=== PATIENT | female | born 1980 | race Caucasian/White ===

== ENCOUNTER → 2017-11-10 | Outpatient (CLI) | payer OTHER ==
[~2017-11-10] MED LIST: AMOXICILLIN; CALTRATE 600 +1 EAC1 PO; CLEOCIN HCL300 MG PO; FLAGYL250 MG; FLEXERIL5 MG PO; GABAPENTIN300 MG PO; KEFLEX500 MG PO; LEVOTHYROXINE100 MCG PO; LEVOTHYROXINE75 MCG PO; LISINOPRIL20 MG PO; MINIPRESS1 MG PO; NEURONTIN600 MG PO; NO HOME MEDS; NOHOMEMEDS; OXYCODONE HCL10 MG PO; PERCOCET; PHENTERMINE PO; PRILOSEC20 MG PO; RYBIX ODT50 MG PO; TRAMADOL HCL50 MG PO; TRAZODONE HCL100 MG PO; TYLENOL325 M1 PO; VENTOLIN HFA18 GM IH; VISTARIL25 MG PO; VOLTAREN75 MG PO; WELLBUTRIN XL150 MG PO; WOMEN'S DAILY1 EAC4 PO; ZOFRAN4 MG PO; [UNRECOGNIZED DRUG - OTHER] PO; ~No Medications
== END | disposition home or self-care (01) ==
LOC: CDC 15:29
DX: I10 Essential (primary) hypertension (principal); R94.31 Abnormal electrocardiogram [ECG] [EKG]
CPT/HCPCS: 93000

== ENCOUNTER 2017-12-12 07:41 | Day surgery (SDC) | payer OTHER ==
[~2017-12-12] VITALS: Ht 162.6 cm; Wt 117.0 kg
[~2017-12-12 07:41] MED LIST changes: +AMBIEN10 MG PO; +BENTYL20 MG PO; +IMITREX100 MG PO; +KLONOPIN0.5 M1 PO; +TOPAMAX25 MG PO; +VALTREX1000 MG PO
[2017-12-12 08:05] VITALS: BP 119/63
[2017-12-12] MEDS ORDERED: ENDOCET 5-3251 EACH PO (12:33)
[2017-12-12] MEDS ORDERED: IBUPROFEN800 MG PO (12:33)
[2017-12-12 13:31] VITALS: BP 102/60
[2017-12-12 14:06] VITALS: BP 113/66
== END 2017-12-12 14:15 | disposition home or self-care (01) ==
LOC: SDC
DX: R10.2 Pelvic and perineal pain (principal); N94.6 Dysmenorrhea, unspecified; N94.10 Unspecified dyspareunia; N92.0 Excessive and frequent menstruation with regular cycle; N93.0 Postcoital and contact bleeding; N83.8 Other noninflammatory disorders of ovary, fallopian tube and broad ligament; N90.7 Vulvar cyst; N85.4 Malposition of uterus; N84.0 Polyp of corpus uteri; Z98.51 Tubal ligation status; N73.6 Female pelvic peritoneal adhesions (postinfective); Z88.5 Allergy status to narcotic agent; Z88.6 Allergy status to analgesic agent; Z88.8 Allergy status to other drugs, medicaments and biological substances
CPT/HCPCS: 88304; 88305; J0131; J0330; J1100; J1170; J1885; J2250; J2405; J3010; S0020